=== PATIENT | male | born 1960 | race Caucasian/White ===

== ENCOUNTER 2016-09-28 13:02 | Emergency (ER) | payer SELFPAY ==
--- NOTE | 2016-09-28 15:24 | ER Document Report ---
ED Medical Screen (RME) - General Mode of Arrival: Ambulatory Information source: Patient TRAVEL OUTSIDE OF THE [place] IN LAST 30 DAYS: No - HPI Patient complains to provider of: Abdominal pain Onset: Other - months ago Associated Symptoms: Other - see notes above Exacerbated by: denies: Food - Related Data Smoking: Cigarettes Frequency of alcohol use: Heavy - 6-pack a day Drug Abuse: Marijuana <CARLOS BLANCO - Last Filed: 09/28/16 16:00> <DAYRON MONZON - Last Filed: 09/28/16 21:22> - General Chief Complaint: Abdominal Pain Stated Complaint: ABDOMINAL PAIN Notes: 55-year-old male presents to the ED complaining of constant burning epigastric abdominal pain that started a couple months ago. Patient is also complaining of nausea, but denies diarrhea, cough, or fever. Patient reports that the burning sensation is not exacerbated with eating. Patient does complain of a ventral hernia that has been present for "years". Patient states that the last 2 weeks his abdominal pain has been getting worse with the most severe pain in the last 4 days. Patient has used Tums, but to no relief. Patient does state that he is a 6 pack a day drinker. (CARLOS BLANCO) - Related Data Allergies/Adverse Reactions: Penicillins Allergy (Verified 09/28/16 13:30) Past Medical History - General Information source: Patient - Social History Chew tobacco use (# tins/day): No Frequency of alcohol use: Heavy Drug Abuse: Marijuana Family history: Reviewed & Not Pertinent - Past Medical History Cardiac Medical History: Reports: Hx Hypertension - no medications Renal/ Medical History: Denies: Hx Peritoneal Dialysis Past Surgical History: Denies: Hx Pacemaker - Immunizations Hx Diphtheria, Pertussis, Tetanus Vaccination: No <CARLOS BLANCO - Last Filed: 09/28/16 16:00> Review of Systems - Review of Systems Constitutional: No symptoms reported. denies: Fever EENT: No symptoms reported Cardiovascular: No symptoms reported Respiratory: No symptoms reported. denies: Cough Gastrointestinal: See HPI, Abdominal pain, Nausea. denies: Diarrhea Genitourinary: No symptoms reported Male Genitourinary: No symptoms reported Musculoskeletal: No symptoms reported Skin: No symptoms reported Hematologic/Lymphatic: No symptoms reported Neurological/Psychological: No symptoms reported <CARLOS BLANCO - Last Filed: 09/28/16 16:00> Physical Exam - General General appearance: Alert In distress: None - Respiratory Respiratory status: No respiratory distress Breath sounds: Other - Diminished breath sounds to the right lower lobe. - Cardiovascular Rhythm: Regular Heart sounds: Normal auscultation Murmur: No Friction rub: No Gallop: None auscultated - Abdominal Inspection: Other - Partially reducible ventral hernia just below the xiphoid process which is minimally tender to palpate. Because the patient was sitting upright it is unsure if the hernia will be reducible.. No: Normal <CARLOS BLANCO - Last Filed: 09/28/16 16:00> Course - Laboratory Result Diagrams: 09/28/16 15:48 09/28/16 15:48 <CARLOS BLANCO - Last Filed: 09/28/16 16:00> - Laboratory Result Diagrams: 09/28/16 15:48 09/28/16 15:48 <DAYRON MONZON - Last Filed: 09/28/16 21:22> - Vital Signs Vital signs: Temp Pulse Resp BP Pulse Ox 98.3 F 60 18 134/73 H 98 09/28/16 19:21 09/28/16 19:21 09/28/16 19:21 09/28/16 19:21 09/28/16 19:21 - Laboratory Laboratory results interpreted by me: 09/28/16 09/28/16 09/28/16 15:48 15:48 18:00 WBC 11.3 H RBC 3.94 L Hgb 13.3 L MCV 101 H MCH 33.8 H BUN 35 H Creatinine 1.45 H Est GFR (Non-Af Amer) 51 L Lactic Acid 0.6 L Doctor's Discharge <CARLOS BLANCO - Last Filed: 09/28/16 16:00> <DAYRON MONZON - Last Filed: 09/28/16 21:22> - Discharge Clinical Impression: Epigastric hernia, Kidney lesion, [place], right Condition: Good Disposition: HOME, SELF-CARE Additional Instructions: Come back immediately with any increased pain, fevers, vomiting, expansion of the hernia, or any other acute problems. Please make sure that she follow-up with a general surgeon as we have discussed. Please make sure that you follow- up with your primary care physician regarding the kidney lesion that we saw on CT scan as we have discussed. He can take Prilosec [id number] daily as we have discussed Prescriptions: Hydrocodone/Acetaminophen [[place] 5-325 Tablet] 1 each PO Q6 PRN #12 tablet PRN Reason: For Pain Referrals: ALEISHA GUERIN MD [ACTIVE STAFF] - Follow up as needed Scribe Documentation - Scribe Written by Scribe:: Dennis Lakhani, 09/28/2016 1613 acting as scribe for :: Maddie <CARLOS BLANCO - Last Filed: 09/28/16 16:00>
[2016-09-28 16:13] LABS: ABSOLUTE EOSINOPHILS # (AUTO) 0.2 10^3/uL (0.0-0.6); ABSOLUTE LYMPHOCYTES (AUTO) 2.2 10^3/uL (0.5-4.7); ABSOLUTE MONOCYTES (AUTO) 0.9 10^3/uL (0.1-1.4); ABSOLUTE NEUT (AUTO) 8.1 10^3/uL (1.7-8.2); BASOPHILS % (AUTO) 0.3 % (0-2); EOSINOPHILS % (AUTO) 1.4 % (0-6); HEMATOCRIT 39.9 % (37.9-51.0); HEMOGLOBIN 13.3 g/dL (13.5-17.0); LYMPHOCYTES % (AUTO) 19.3 % (13-45); MEAN CORPUSCULAR HEMOGLOBIN 33.8 pg (27.0-33.4); MEAN CORPUSCULAR HGB CONC 33.4 g/dL (32.0-36.0); MEAN CORPUSCULAR VOLUME 101 fl (80-97); MONOCYTES % (AUTO) 7.7 % (3-13); RED BLOOD COUNT 3.94 10^6/uL (4.35-5.55); RED CELL DISTRIBUTION WIDTH 13.1 % (11.5-14.0); SEGMENTED NEUTROPHILS % (AUTO) 71.3 % (42-78); WHITE BLOOD COUNT 11.3 10^3/uL (4.0-10.5)
[2016-09-28] MEDS ORDERED: MORPHINE SULFATE 10 MG/ML INJ IV ONE (16:13)
[2016-09-28 16:20] LABS: ALANINE AMINOTRANSFERASE 48 U/L (21-72); ALBUMIN 4.6 g/dL (3.5-5.0); ALKALINE PHOSPHATASE 71 U/L (38-126); ANION GAP 12 (5-19); ASPARTATE AMINO TRANSFERASE 29 U/L (17-59); BILIRUBIN,DIRECT 0.3 mg/dL (0.0-0.4); BILIRUBIN,TOTAL 0.8 mg/dL (0.2-1.3); BLOOD UREA NITROGEN 35 mg/dL (7-20); CARBON DIOXIDE 25 mmol/L (22-30); CHLORIDE 104 mmol/L (98-107); CREATININE RESULT 1.45 mg/dL (0.52-1.25); GLUCOSE 93 mg/dL (75-110); LIPASE 208.3 U/L (23-300); POTASSIUM 4.8 mmol/L (3.6-5.0); SODIUM 140.7 mmol/L (137-145); TOTAL PROTEIN 8.1 g/dL (6.3-8.2)
[2016-09-28] MEDS ORDERED: NORMAL SALINE 1000 ML 1,000 ML IV ONE (16:51)
--- NOTE | 2016-09-28 16:55 | ER Document Report ---
ED GI/ - General Chief Complaint: Abdominal Pain Stated Complaint: ABDOMINAL PAIN Time Seen by Provider: 09/28/16 15:24 Mode of Arrival: Ambulatory Information source: Patient Notes: 55-year-old male who presents today with some progressive intermittent epigastric abdominal pain for 2 months. He denies any radiation. He states worse with movement. He states nausea without vomiting, fevers, chest pain, shortness of breath. Patient states he has had a "bulge" in his upper abdomen for around 2 years that has progressively increased in size. TRAVEL OUTSIDE OF THE [place] IN LAST 30 DAYS: No - HPI Patient complains to provider of: Abdominal pain Onset: Other - See above Timing/Duration: Gradual Quality of pain: Achy Severity at maximum: Moderate Severity in ED: Mild, Moderate Pain Level: 1 Location: Epigastric Sexual history: Inactive Associated symptoms: Other - See above Exacerbated by: Other - See above Relieved by: Denies Similar symptoms previously: No Recently seen / treated by doctor: No - Related Data Allergies/Adverse Reactions: Penicillins Allergy (Verified 09/28/16 13:30) Past Medical History - General Information source: Patient - Social History Smoking Status: Current Every Day Smoker Cigarette use (# per day): No Chew tobacco use (# tins/day): No Smoking Education Provided: No Frequency of alcohol use: Heavy Drug Abuse: Marijuana Family History: Reviewed & Not Pertinent Patient has suicidal ideation: No Patient has homicidal ideation: No - Past Medical History Cardiac Medical History: Reports: Hx Hypertension - no medications Renal/ Medical History: Denies: Hx Peritoneal Dialysis Past Surgical History: Denies: Hx Pacemaker - Immunizations Hx Diphtheria, Pertussis, Tetanus Vaccination: No Review of Systems - Review of Systems Constitutional: denies: Fever Cardiovascular: denies: Chest pain, Palpitations, Dizziness, Lightheaded Respiratory: denies: Cough, Short of breath Gastrointestinal: denies: Vomiting Genitourinary: denies: Dysuria Musculoskeletal: denies: Leg swelling Skin: Other - no hives. denies: Rash Neurological/Psychological: Other - no slurred speech -: Yes All other systems reviewed and negative Physical Exam - Vital signs Vitals: Temp Pulse Resp BP Pulse Ox 98.3 F 78 16 108/64 98 09/28/16 13:33 09/28/16 13:33 09/28/16 13:33 09/28/16 13:33 09/28/16 13:33 Notes: Reviewed vital signs and nursing note as charted by RN. CONSTITUTIONAL: Alert and oriented and responds appropriately to questions. Well -appearing; well-nourished HEAD: Normocephalic; atraumatic EYES: Sclerae non-icteric CARD: Regular rate and rhythm; no murmurs, no clicks, no rubs, no gallops; symmetric distal pulses RESP: Normal chest excursion without splinting or tachypnea; breath sounds clear and equal bilaterally ABD/GI: Normal bowel sounds; patient has a palpable mass to the mid epigastric region. No erythema or induration present. Mildly tender to palpation. BACK: The back appears normal and is non-tender to palpation, there is no CVA tenderness EXT: Normal ROM in all joints; non-tender to palpation; no cyanosis, no effusions, no edema SKIN: Normal color for age and race; warm; dry; good turgor; capillary refill < 2 seconds; no acute lesions noted NEURO: Moves all extremities equally; Motor and sensory function intact PSYCH: The patient's mood and manner are appropriate. Grooming and personal hygiene are appropriate. Course - Re-evaluation Re-evalutation: Given the above history and physical examination, basic labs, lipid panel, lipase, and a CT scan of the abdomen and pelvis has been ordered. 09/28/16 16:[address] scan is pending. 09/28/16 18:[address] scan as recorded. Normal lactic acid. EKG shows a heart rate of 66, normal sinus rhythm, normal axis, no obvious ST elevation or depression. I discussed the CT findings with the patient and the family. He understands he needs to follow-up about the kidney lesion that is present. No gallbladder pathology present. Labs as recorded. Given the patient's epigastric hernia that contains only fat, I have asked the general surgeon to come down and at least quickly assessed the patient. He is in agreement. He states he will be down momentarily. 09/28/16 19:05 The surgeon has come down and evaluated the patient. He does not believe that the patient requires admission at this time. He states that they will fit the patient into the clinic tomorrow. Patient is in agreement with this plan. Patient will be discharged home with strict return precautions and follow-up tomorrow morning. - Vital Signs Vital signs: Temp Pulse Resp BP Pulse Ox 98.3 F 78 16 108/64 98 09/28/16 13:33 09/28/16 13:33 09/28/16 13:33 09/28/16 13:33 09/28/16 13:33 - Laboratory Result Diagrams: 09/28/16 15:48 09/28/16 15:48 Laboratory results interpreted by me: 09/28/16 09/28/16 09/28/16 15:48 15:48 18:00 WBC 11.3 H RBC 3.94 L Hgb 13.3 L MCV 101 H MCH 33.8 H BUN 35 H Creatinine 1.45 H Est GFR (Non-Af Amer) 51 L Lactic Acid 0.6 L Discharge - Discharge Clinical Impression: Epigastric hernia, Kidney lesion, [place], right Condition: Good Disposition: HOME, SELF-CARE Additional Instructions: Come back immediately with any increased pain, fevers, vomiting, expansion of the hernia, or any other acute problems. Please make sure that she follow-up with a general surgeon as we have discussed. Please make sure that you follow- up with your primary care physician regarding the kidney lesion that we saw on CT scan as we have discussed. He can take Prilosec [id number] daily as we have discussed Prescriptions: Hydrocodone/Acetaminophen [[place] 5-325 Tablet] 1 each PO Q6 PRN #12 tablet PRN Reason: For Pain Referrals: ALEISHA GUERIN MD [ACTIVE STAFF] - Follow up as needed
--- NOTE | 2016-09-28 17:41 | RADIOLOGY REPORT (SQ) ---
EXAM DESCRIPTION: CT ABD/PELVIS WITH IV ONLY COMPLETED DATE/TIME: 09/28/2016 5:23 pm REASON FOR STUDY: 47, abdominal pain and epigastric palpable mass COMPARISON: None. TECHNIQUE: CT scan of the abdomen and pelvis performed using helical scanning technique with dynamic intravenous contrast injection. No oral contrast. Images reviewed with lung, soft tissue, and bone windows. Reconstructed coronal and sagittal MPR images reviewed. Delayed images for evaluation of the urinary system also acquired. All images stored on PACS. All CT scanners at this facility use dose modulation, iterative reconstruction, and/or weight based d osing when appropriate to reduce radiation dose to as low as reasonably achievable (ALARA). [facility]: Dose Right [facility]: CareDose [facility]: Dose Right [facility]: Teradose 4D [facility]: Friend.ly CONTRAST TYPE AND DOSE: contrast/concentration: Isovue 370.00 mg/ml; Total Contrast Delivered: 89.0 ml; Total Saline Delivered: 70.0 ml RENAL FUNCTION: Creatinine 1.45 RADIATION DOSE: Up-to-date CT equipment and radiation dose reduction techniques were employed. CTDIv ol: 9.9 - 13.5 mGy. DLP: 1162 mGy-cm.. LIMITATIONS: None. FINDINGS: LOWER CHEST: No significant findings. No nodules or infiltrates. LIVER: Normal size. No masses or dilated ducts. SPLEEN: Normal size. No focal lesions. PANCREAS: No masses. No significant calcifications. No adjacent inflammation or peripancreatic fluid collections. Pancreatic duct not dilated. GALLBLADDER: No identified stones by CT criteria. No inflammatory changes to suggest cholecystitis. ADRENAL GLANDS: No significant masses or asymmetry. RIGHT KIDNEY AND URETER: 3.7 heterogeneous solid mass in the mid right kidney. No significant calci fications. No hydronephrosis or hydroureter. LEFT KIDNEY AND URETER: No solid masses. No significant calcifications. No hydronephrosis or hydr oureter. AORTA AND VESSELS: No aneurysm. No dissection. Renal arteries, SMA, celiac without stenosis. RETROPERITONEUM: No retroperitoneal adenopathy, hemorrhage or masses. BOWEL AND PERITONEAL CAVITY: No masses or inflammatory changes. No free fluid or peritoneal masses. APPENDIX: Normal. PELVIS: No mass or free fluid. Normal bladder. ABDOMINAL WALL: In the epigastrium there is a factual defect with a ventral hernia containing fat. M easures 5.5 cm. BONES: No significant or acute findings. OTHER: No other significant finding. IMPRESSION: Solid mass in the right kidney highly suspicious for renal cell carcinoma. No evidence for metastatic lesions. Epigastric Ventral hernia containing herniated fat TECHNICAL DOCUMENTATION: JOB ID: [id number] Quality ID # [id number]: Final reports with documentation of one or more dose reduction techniques (e.g., Au tomated exposure control, adjustment of the mA and/or kV according to patient size, use of iterative reconstruction technique) 2010 [employer]- All Rights Reserved
[2016-09-28] MEDS ORDERED: LIDOCAINE 2% VISCOUS SOLN 20 ML UDCUP PO ONE (18:52)
[2016-09-28] MEDS ORDERED: METOCLOPRAMIDE HCL ORAL SOLN 10 MG/10 ML UDCUP PO ONE (18:52)
[2016-09-28] MEDS ORDERED: MAG HYDROX/AL HYDROX/SIMETH SUSP 30 ML UDCUP PO ONE (18:52)
[2016-09-28 19:24] VITALS: BP 134/73
--- NOTE | 2016-09-28 20:28 | CONSULTATION REPORT E ---
Consultation Report NAME: GALLITO CARMEN : 1960 AGE: 55Y DATE: 09/28/2016 TO: CHERY ALLAN M.D. FROM: MARTA LEVINE M.D. Requesting Physician REASON FOR CONSULTATION: Patient with pains along the epigastric hernia site. HISTORY OF PRESENT ILLNESS: This is a 55-year-old male who has been known to have epigastric hernia for the past few years. Today while at work he complained of severe pains and came home after 2 hours and then went to the emergency room. A CAT scan of the abdomen was done which showed incarcerated supraumbilical hernia with fatty tissue as contents. No bowel was noted. The patient also with no history of nausea or vomiting. An incidental finding of renal mass was noted. SOCIAL HISTORY: The patient smokes about 1-1/2 packs a day and drinks socially, denies alcohol use. PAST MEDICAL HISTORY: History of hypertension. ALLERGIES: None known. REVIEW OF SYSTEMS: GI: As in HPI. The rest of the systems are normal. PHYSICAL EXAMINATION: GENERAL APPEARANCE: A well-developed, well-nourished 55-year-old male, alert and oriented, complaining of pains in the epigastric area. HEENT: Neck is supple, no thyromegaly. RESPIRATORY: Lungs are clear. HEART: Regular sinus rhythm. ABDOMEN: Soft with a prominent soft mass at the epigastric area that is nonreducible that is just slightly tender. No evidence of inflammation around the skin. IMPRESSION/PLAN: Since the patient does not have any evidence of bowel that is obstructed, the hernia can be repaired on an elective basis. Advised the patient to go to the Surgical Clinic tomorrow. But more important is to have the renal mass evaluated. DICTATING PHYSICIAN: CHERY ALLAN M.D. [id number] PHY#: [id number] 2011 ID: [id number] JOB#: [id number] ACCT: [id number] cc:CHERY ALLAN M.D. >
--- NOTE | 2016-09-29 09:16 | EKG REPORT ---
SEVERITY:- NORMAL ECG - SINUS RHYTHM : Confirmed by: Paddy Hayes 29-Sep-2016 09:16:29
== END 2016-09-28 19:30 | disposition home or self-care (01) ==
LOC: ER 13:02
DX: K43.9 Ventral hernia without obstruction or gangrene (principal); N28.9 Disorder of kidney and ureter, unspecified; R10.9 Unspecified abdominal pain; R10.13 Epigastric pain; R11.0 Nausea; R50.9 Fever, unspecified; R07.9 Chest pain, unspecified; R06.02 Shortness of breath; F17.200 Nicotine dependence, unspecified, uncomplicated
CPT/HCPCS: 93005; 99285; 96374; 36415; 83605; 83690; 85025; 80053; 84484; 74177; 93010; J2270

== ENCOUNTER 2016-11-03 07:10 | Day surgery (SDC) | payer OTHER ==
[2016-11-03] MEDS ORDERED: ONDANSETRON HCL INJ/PF 4 MG/2 ML SDV ONE (07:21)
[2016-11-03] MEDS ORDERED: GLYCOPYRROLATE INJ 0.4 MG/2 ML VIAL ONE (07:22)
[2016-11-03] MEDS ORDERED: NALOXONE HCL INJ/PF 0.4 MG/1 ML SDV ONE (07:22)
[2016-11-03] MEDS ORDERED: GLUCAGON,HUMAN RECOMB 1 MG INJ ONE (07:23)
[2016-11-03] MEDS ORDERED: EPINEPHRINE INJ 1 MG/10 ML DISP.SYRIN ONE (07:23)
[2016-11-03] MEDS ORDERED: FLUMAZENIL INJ 0.5 MG/5 ML VIAL IV ONE (07:23)
[2016-11-03] MEDS: MIDAZOLAM 2 MG/2 ML INJ ONE ×3 (07:36→07:45)
[2016-11-03] MEDS: FENTANYL CITRATE INJ/PF 100 MCG/2 ML AMPUL ONE ×2 (07:38→07:49)
--- NOTE | 2016-11-03 08:23 | Operative Report ---
Operative Report DATE OF SURGERY: 11/03/16 PREOPERATIVE DIAGNOSIS: Screening for colon cancer. Right renal mass POSTOPERATIVE DIAGNOSIS: Same with pedunculated polyp left colon OPERATION: Total colonoscopy to cecum. Left colon polypectomy SURGEON: ALEISHA GUERIN ANESTHESIA: Moderate Sedation TISSUE REMOVED OR ALTERED: 1 polyp COMPLICATIONS: None ESTIMATED BLOOD LOSS: Scant INTRAOPERATIVE FINDINGS: See below PROCEDURE: Obtaining informed consent the patient was taken from the preoperative holding area to the main endoscopy suite where monitoring devices were attached to the patient. Plan and surgical timeout were conducted The patient was placed in the left lateral decubitus position with knees to chest. A perianal examination was performed. There was no visible or palpable anorectal pathology. Sphincter tone was felt to be normal. The flexible adult colonoscope was advanced through the anal rectal canal, all the way to the cecum. Utilization of the cecum was achieved and the ileocecal valve, the appendiceal orifice and transillumination of the anterior abdominal wall. This was an excellent study on the well-prepped bowel. The colonoscope was withdrawn slowly and methodically checked and the mucosa carefully. There was no evidence of tumor, stricture, bleeding. In the descending colon approximately 70 cm from the anal verge was a 1.5 cm variegated, pedunculated polyp on a very thin stalk. It was removed using the hot snare device, with successful retrieval of the specimen. Cautery site was in excellent condition. There was no evidence of diverticuloses. The scope was slowly withdrawn through the anal rectal canal. Complete visualization of the rectum was achieved with photodocumentation. The scope was withdrawn to the patient's anus. The patient tolerated the procedure well and was taken to the recovery area in stable condition. Per surveillance guidelines, patient will be an appropriate candidate for follow -up colonoscopy in 3 years or less if symptoms develop
--- NOTE | 2016-11-03 08:24 | PDOC DISCHARGE SUMMARY ---
Discharge Summary (SDC) - Discharge Final Diagnosis: Colonic polyp Right renal mass Date of Surgery: 11/03/16 Discharge Date: 11/03/16 Condition: Good Treatment or Instructions: [facility] [place] [id number] POST ENDOSCOPY DISCHARGE INSTRUCTIONS 1. Diet: Start clear liquids that a regular diet as tolerated. 2. Resume all preoperative medications. All oral anticoagulants and aspirins can be resumed 24 hours after procedure. 3. If a polypectomy was performed some bleeding per rectum may occur. This should stop within 3 days. If not, please contact the office. 4. If you had a colonoscopy you may experience some bloating and delayed return of normal bowel function for several days, your regular bowel movement pattern should resume within a week. 5. Please contact [facility] at to make an appointment with Dr. Sargent for 1 to 3 weeks following procedure. 6. If you have any questions or concerns regarding your care,treatment plan or follow up, please contact our office. 7. Per clinical guidelines we recommend you undergo a repeat colonoscopy in 3 _ years. Discharge Diet: As Tolerated Discharge Activity: Activity As Tolerated Home Care Assistance: None Needed Report the Following to Your Physician Immediately: Shortness of Breath, Increase in Pain, Fever over 101 Degrees
[2016-11-03 09:12] VITALS: BP 98/64
== END 2016-11-03 09:11 | disposition home or self-care (01) ==
LOC: END 07:10
PROVIDERS: ATTEND Surgery
PROC: 0DBG8ZX Excision of Left Large Intestine, Via Natural or Artificial Opening Endoscopic, Diagnostic (ICD-10-PCS; principal; 2016-11-03 07:30)
DX: D12.4 Benign neoplasm of descending colon (principal); K62.5 Hemorrhage of anus and rectum; I10 Essential (primary) hypertension; N28.89 Other specified disorders of kidney and ureter; F17.210 Nicotine dependence, cigarettes, uncomplicated; Z88.0 Allergy status to penicillin; Z79.899 Other long term (current) drug therapy; Z79.82 Long term (current) use of aspirin
CPT/HCPCS: 45385; 88305 ×2; J2250; J3010; J0171; J1610; J2310; J2405; J3490

== ENCOUNTER 2016-12-21 23:53 | Emergency (ER) | payer SELFPAY ==
[2016-12-22] MEDS ORDERED: MORPHINE SULFATE 10 MG/ML INJ IV ONE (01:25)
[2016-12-22] MEDS ORDERED: ONDANSETRON HCL INJ/PF 4 MG/2 ML SDV IV ONE (01:25)
--- NOTE | 2016-12-22 01:26 | ER Document Report ---
ED ENT - General Chief Complaint: Sore Throat Stated Complaint: SORE THROAT Time Seen by Provider: 12/22/16 01:01 Notes: Patient is a 55-year-old male who comes emergency department for chief complaint of sore throat and pain in the front of his neck. Symptoms started tonight. He states he feels tired and under the weather. He denies chest pain , shortness of breath, he states it is painful swallow but he denies difficulty swallowing. He denies any sick contacts. Past medical history of hypertension and hyperlipidemia. He denies history of diabetes or cardiovascular disease. His is with him at bedside. TRAVEL OUTSIDE OF THE [place] IN LAST 30 DAYS: No - Related Data Allergies/Adverse Reactions: Penicillins Allergy (Verified 12/21/16 23:58) Home Medications: Current Home Medications Aspirin [Aspirin EC] 81 mg PO DAILY 12/22/16 [History] Cyanocobalamin (Vitamin B-12) [Vitamin B-12] 1,000 mcg SL DAILY 12/22/16 [ History] Docusate Sodium [Dok] 1 tab PO BID 12/22/16 [History] Krill/Om-3/Dha/Epa/Phospho/Ast [Megared Rochelle-3 Krill Oil Sfgl] 1 each PO DAILY 12/22/16 [History] Simvastatin [Zocor 40 mg Tablet] 40 mg PO QHS 12/22/16 [History] Past Medical History - General Information source: Patient - Social History Smoking Status: Never Smoker Frequency of alcohol use: None Drug Abuse: None Lives with: Family Family History: Reviewed & Not Pertinent - Past Medical History Cardiac Medical History: Reports: Hx Coronary Artery Disease, Hx Hypertension Denies: Hx Heart Attack Pulmonary Medical History: Denies: Hx Asthma, Hx Bronchitis, Hx COPD, Hx Pneumonia Neurological Medical History: Denies: Hx Cerebrovascular Accident, Hx Seizures Renal/ Medical History: Denies: Hx Peritoneal Dialysis Musculoskeltal Medical History: Reports Hx Arthritis Past Surgical History: Reports: Hx Kidney (Renal Surgery) - Rt kidney removed. Denies: Hx Pacemaker - Immunizations Hx Diphtheria, Pertussis, Tetanus Vaccination: No Review of Systems - Review of Systems Constitutional: No symptoms reported EENT: See HPI Cardiovascular: No symptoms reported Respiratory: No symptoms reported Gastrointestinal: No symptoms reported Genitourinary: No symptoms reported Male Genitourinary: No symptoms reported Musculoskeletal: No symptoms reported Skin: No symptoms reported Hematologic/Lymphatic: No symptoms reported Neurological/Psychological: No symptoms reported Physical Exam - Vital signs Vitals: Temp Pulse Resp BP Pulse Ox 97.6 F 108 H 24 H 112/57 L 94 12/21/16 23:58 12/21/16 23:58 12/21/16 23:58 12/21/16 23:58 12/21/16 23:58 Interpretation: Normal - General General appearance: Appears well, Alert In distress: None - HEENT Head: Normocephalic, Atraumatic Eyes: Normal Conjunctiva: Normal Extraocular movements intact: Yes Eyelashes: Normal Pupils: PERRL Ears: Normal Nasal: Normal Mouth/Lips: Normal Mucous membranes: Normal Pharynx: Erythema. No: Exudate, Peritonsillar abscess, Uvular edema, Potential airway comprom. Neck: Anterior cervical chain. No: Posterior cervical chain, Brudzinski, Meningismus - Respiratory Respiratory status: No respiratory distress Chest status: Nontender Breath sounds: Normal. No: Decreased air movement, Wheezing Chest palpation: Normal - Cardiovascular Rhythm: Regular. No: Tachycardia - Patient is not tachycardic on my exam Heart sounds: Normal auscultation, S1 appreciated, S2 appreciated Murmur: No - Abdominal Inspection: Normal Distension: No distension Bowel sounds: Normal Tenderness: Nontender Organomegaly: No organomegaly - Back Back: Normal, Nontender - Extremities General upper extremity: Normal inspection, Nontender, Normal color, Normal ROM , Normal temperature General lower extremity: Normal inspection, Nontender, Normal color, Normal ROM , Normal temperature, Normal weight bearing. No: Mechelle's sign - Neurological Neuro grossly intact: Yes Cognition: Normal Orientation: AAOx4 [place] Coma Scale Eye Opening: Spontaneous [place] Coma Scale Verbal: Oriented [place] Coma Scale Motor: Obeys Commands Lexi Coma Scale Total: 15 Speech: Normal Motor strength normal: LUE, RUE, LLE, RLE Sensory: Normal - Psychological Associated symptoms: Normal affect, Normal mood - Skin Skin Temperature: Warm Skin Moisture: Dry Skin Color: Normal Course - Re-evaluation Re-evalutation: There is some mild leukocytosis with no bandemia. No fever, tachycardia, or hypotension. Patient is actually very well-appearing on examination. His only concern is his sore throat and his swollen lymph nodes in his neck. No concerning swelling suggesting abscess, Shade's angina, or mass. There is some erythema of the throat but no evidence of peritonsillar abscess, uvular edema, or airway compromise. Chemistry shows mildly low bicarb, shows elevated creatinine slightly above patient's usual. I did discuss this with patient and . Cannot perform contrasted CAT scan of the neck, however at the same time I do not see an indication for this. No evidence of epiglottitis or other emergent abnormality. After dexamethasone patient's symptoms almost completely gone, he is asking to leave. Will treat for pharyngitis, tonsillitis, and lymphadenopathy. Discussed with patient that this could be viral. Recommended to patient that he follow-up with his primary within the next 1-2 days, discussed return precautions in detail. Patient states satisfaction and agreement. - Vital Signs Vital signs: Temp Pulse Resp BP Pulse Ox 98.2 F 76 17 113/68 93 12/22/16 02:41 12/22/16 02:41 12/22/16 02:41 12/22/16 02:41 12/22/16 02:41 - Laboratory Result Diagrams: 12/22/16 01:35 12/22/16 01:35 Laboratory results interpreted by me: 12/22/16 12/22/16 01:35 01:35 WBC 13.8 H RBC 3.68 L Hgb 12.6 L Hct 37.3 L MCV 101 H MCH 34.2 H Absolute Neutrophils 9.7 H Sodium 135.0 L Carbon Dioxide 20 L BUN 45 H Creatinine 1.94 H Est GFR ( Amer) 44 L Est GFR (Non-Af Amer) 36 L Discharge - Discharge Clinical Impression: Anterior cervical adenopathy Pharyngitis Qualifiers: Pharyngitis/tonsillitis etiology: unspecified etiology Qualified Code(s): J02.9 - Acute pharyngitis, unspecified Condition: Stable Disposition: HOME, SELF-CARE Additional Instructions: Your examination is consistent with a throat infection and swollen lymph nodes. I recommend taking the clindamycin as prescribed. He has been given dexamethasone here tonight for your symptoms. Take Tylenol or similar medication for your symptoms in addition. Follow-up with primary care. Return to the emergency department for any concerning or worsening symptoms including swelling, difficulty swallowing, difficulty breathing, spiking fever, or any other concerning symptoms. Prescriptions: Clindamycin HCl 300 mg PO TID #30 capsule
[2016-12-22 01:44] LABS: ABSOLUTE BASOPHILS # (AUTO) 0.1 10^3/uL (0.0-0.2); ABSOLUTE EOSINOPHILS # (AUTO) 0.6 10^3/uL (0.0-0.6); ABSOLUTE LYMPHOCYTES (AUTO) 2.5 10^3/uL (0.5-4.7); ABSOLUTE MONOCYTES (AUTO) 0.9 10^3/uL (0.1-1.4); ABSOLUTE NEUT (AUTO) 9.7 10^3/uL (1.7-8.2); BASOPHILS % (AUTO) 0.7 % (0-2); EOSINOPHILS % (AUTO) 4.1 % (0-6); HEMATOCRIT 37.3 % (37.9-51.0); HEMOGLOBIN 12.6 g/dL (13.5-17.0); HGB HCT DIFFERENCE 0.5; MEAN CORPUSCULAR HEMOGLOBIN 34.2 pg (27.0-33.4); MEAN CORPUSCULAR HGB CONC 33.7 g/dL (32.0-36.0); MEAN CORPUSCULAR VOLUME 101 fl (80-97); MONOCYTES % (AUTO) 6.7 % (3-13); RED BLOOD COUNT 3.68 10^6/uL (4.35-5.55); SEGMENTED NEUTROPHILS % (AUTO) 70.5 % (42-78); WHITE BLOOD COUNT 13.8 10^3/uL (4.0-10.5)
[2016-12-22 01:56] LABS: ALANINE AMINOTRANSFERASE 45 U/L (21-72); ALBUMIN 4.2 g/dL (3.5-5.0); ALKALINE PHOSPHATASE 83 U/L (38-126); ANION GAP 14 (5-19); ASPARTATE AMINO TRANSFERASE 21 U/L (17-59); BILIRUBIN,DIRECT 0.3 mg/dL (0.0-0.4); BILIRUBIN,TOTAL 0.3 mg/dL (0.2-1.3); BLOOD UREA NITROGEN 45 mg/dL (7-20); CARBON DIOXIDE 20 mmol/L (22-30); CHLORIDE 101 mmol/L (98-107); CREATININE RESULT 1.94 mg/dL (0.52-1.25); GLUCOSE 105 mg/dL (75-110); POTASSIUM 4.4 mmol/L (3.6-5.0); TOTAL PROTEIN 7.3 g/dL (6.3-8.2)
[2016-12-22] MEDS ORDERED: CLINDAMYCIN HCL 150 MG CAPSULE PO ONE (02:28)
[2016-12-22] MEDS ORDERED: DEXAMETHASONE SOD PHOS INJ 10 MG/1 ML VIAL IV ONE (02:28)
[2016-12-22 02:43] VITALS: BP 113/68
[2016-12-22] MEDS ORDERED: HYDROCODONE/ACETAMINOPHEN 5-325 MG 6 TAB/DSPK PO PRN (03:40)
== END 2016-12-22 03:45 | disposition home or self-care (01) ==
LOC: ER 23:53
DX: J02.9 Acute pharyngitis, unspecified (principal); R59.0 Localized enlarged lymph nodes; Z79.899 Other long term (current) drug therapy
CPT/HCPCS: 99283; 96374; 96375; 36415; 87070; 87880; 85025; 80053; J2270; J2405; J1100

== ENCOUNTER 2017-05-19 08:00 | Emergency (ER) | payer SELFPAY ==
--- NOTE | 2017-05-19 08:30 | ER Document Report ---
ED General - General Chief Complaint: Back Pain Stated Complaint: BACK PAIN Time Seen by Provider: 05/19/17 08:17 Mode of Arrival: Ambulatory Information source: Patient Notes: 56-year-old male presents with 2 separate complaints, his first complaint is back pain of 20 year duration. Patient is a smoker he denies any history of cancer, denies IV drug use, denies any traumatic injuries, denies any cauda equina concerns. Patient notes no weakness or numbness, he says if he bends forward for long period of time will get numb in his back. Patient has not seen anyone for this back pain, rarely takes any medications for his back pain. Patient also notes that he has a cyst to his right foot that gets bigger and smaller and is intermittently painful denies any fevers TRAVEL OUTSIDE OF THE [place] IN LAST 30 DAYS: No - HPI Onset: Other - 20 yr duration Onset/Duration: Persistent Quality of pain: Achy Severity: Mild Pain Level: 1 Associated symptoms: Body/muscle aches, Other Exacerbated by: Movement Relieved by: Denies Similar symptoms previously: Yes Recently seen / treated by doctor: No - Related Data Allergies/Adverse Reactions: Penicillins Allergy (Verified 12/21/16 23:58) Past Medical History - Social History Smoking Status: Current Every Day Smoker Cigarette use (# per day): Yes Chew tobacco use (# tins/day): No Smoking Education Provided: No Family History: Reviewed & Not Pertinent - Past Medical History Cardiac Medical History: Reports: Hx Coronary Artery Disease, Hx Hypertension Denies: Hx Heart Attack Pulmonary Medical History: Denies: Hx Asthma, Hx Bronchitis, Hx COPD, Hx Pneumonia Neurological Medical History: Denies: Hx Cerebrovascular Accident, Hx Seizures Renal/ Medical History: Denies: Hx Peritoneal Dialysis Musculoskeltal Medical History: Reports Hx Arthritis Past Surgical History: Reports: Hx Kidney (Renal Surgery) - Rt kidney removed. Denies: Hx Pacemaker - Immunizations Hx Diphtheria, Pertussis, Tetanus Vaccination: No Review of Systems - Review of Systems Notes: REVIEW OF SYSTEMS: CONSTITUTIONAL : Denies fever, chills, or sweats. Denies recent illness. EENT: Denies eye, ear, throat, or mouth pain or symptoms. Denies nasal or sinus congestion or discharge. Denies throat, tongue, or mouth swelling or difficulty swallowing. CARDIOVASCULAR: Denies chest pain. Denies palpitations or racing or irregular heart beat. Denies ankle edema. RESPIRATORY: Denies cough, cold, or chest congestion. Denies shortness of breath, difficulty breathing, or wheezing. GASTROINTESTINAL: Denies abdominal pain or distention. Denies nausea, vomiting , or diarrhea. Denies blood in vomitus, stools, or per rectum. Denies black, tarry stools. Denies constipation. GENITOURINARY: Denies difficulty urinating, painful urination, burning, frequency, blood in urine, or discharge. MUSCULOSKELETAL: admits low back pain SKIN: right foot cyst HEMATOLOGIC : Denies easy bruising or bleeding. LYMPHATIC: Denies swollen, enlarged glands. NEUROLOGICAL: Denies confusion or altered mental status. Denies passing out or loss of consciousness. Denies dizziness or lightheadedness. Denies headache. Denies weakness or paralysis or loss of use of either side. Denies problems with gait or speech. Denies sensory loss, numbness, or tingling. Denies seizures. PSYCHIATRIC: Denies anxiety or stress. Denies depression, suicidal ideation, or homicidal ideation. ALL OTHER SYSTEMS REVIEWED AND NEGATIVE. Dictation was performed using [employer] voice recognition software PHYSICAL EXAMINATION: GENERAL: Well-appearing, well-nourished and in no acute distress. HEAD: Atraumatic, normocephalic. EYES: Pupils equal round and reactive to light, extraocular movements intact, sclera anicteric, conjunctiva are normal. ENT: Nares patent, oropharynx clear without exudates. Moist mucous membranes. NECK: Normal range of motion, supple without lymphadenopathy LUNGS: Breath sounds clear to auscultation bilaterally and equal. No wheezes rales or rhonchi. HEART: Regular rate and rhythm without murmurs ABDOMEN: Soft, nontender, nondistended abdomen. No guarding, no rebound. No masses appreciated. Musculoskeletal: Normal range of motion, no pitting or edema. No cyanosis. No tenderness on palpation full range of motion NEUROLOGICAL: Cranial nerves grossly intact. Normal speech, normal gait. Normal sensory, motor exams PSYCH: Normal mood, normal affect. SKIN:3x4 cm cyst on the right foot Physical Exam - Vital signs Vitals: Temp Pulse Resp BP Pulse Ox 98.4 F 83 16 128/73 H 97 05/19/17 08:04 05/19/17 08:04 05/19/17 08:04 05/19/17 08:04 05/19/17 08:04 Course - Re-evaluation Re-evalutation: 05/19/17 12:07 Patient does not meet criteria for an MRI, he is no cauda equina concerns, an outpatient order for MRI has been ordered. The cyst was incised and drained thick synovial fluid was noted as well as thick cystic material patient given wound care instructions After performing a Medical Screening Examination, I estimate there is LOW risk for EXPANDING OR RUPTURED ABDOMINAL AORTIC ANEURYSM, CAUDA EQUINA SYNDROME, EPIDURAL MASS LESION, or HERNIATED DISK CAUSING SEVERE SPINAL STENOSIS, thus I consider the discharge disposition reasonable. I have reevaluated this patient multiple times and no significant life threatening changes are noted. The patient and I have discussed the diagnosis and risks, and we agree with discharging home and close follow-up. We also discussed returning to the Emergency Department immediately if new or worsening symptoms occur with the understanding that symptoms and presentations can change. We have discussed the symptoms which are most concerning (e.g., saddle anesthesia, urinary or bowel incontinence or retention, changing or worsening pain) that necessitate immediate return. - Vital Signs Vital signs: Temp Pulse Resp BP Pulse Ox 98.6 F 78 18 124/78 98 05/19/17 10:00 05/19/17 10:00 05/19/17 10:00 05/19/17 10:00 05/19/17 10:00 Procedures - Incision and Drainage Left Foot Time completed: 10:30 Type: Simple Anesthetic type: 1% Lidocaine mL's of anesthetic: 5 I&D procedure: Sterile dressing applied Incision Method: Incision made by scalpel Amount/type of drainage: thick synovial fluid, thick cottage cheese discharge Discharge - Discharge Clinical Impression: Ganglion cyst of right foot Back pain Qualifiers: Back pain location: low back pain Chronicity: chronic Back pain laterality: bilateral Sciatica presence: without sciatica Qualified Code(s): M54.5 - Low back pain; G89.29 - Other chronic pain; G89.29 - Other chronic pain Condition: Stable Disposition: HOME, SELF-CARE Instructions: Low Back Pain ([facility]) Prescriptions: Ketorolac Tromethamine [Toradol 10 mg Tablet] 10 mg PO BID #10 tablet Prednisone [Deltasone 20 mg Tablet] 3 tab PO DAILY 5 Days tablet Forms: Follow-Up Radiology Testing Referrals: NACHO WHEELER MD [ACTIVE STAFF] - Follow up tomorrow
[2017-05-19] MEDS ORDERED: LIDOCAINE 1% INJ-PF (10 MG/ML) 30 ML SDV INJ ONE (08:59)
[2017-05-19] MEDS ORDERED: KETOROLAC TROMETHAMINE 60 MG/2 ML SDV IM ONE (09:03)
[2017-05-19] MEDS ORDERED: DEXAMETHASONE SOD PHOS INJ 10 MG/1 ML VIAL IM ONE (09:03)
[2017-05-19 10:00] VITALS: BP 124/78
== END 2017-05-19 10:00 | disposition home or self-care (01) ==
LOC: ER 08:00
PROC: 0H9MXZZ Drainage of Right Foot Skin, External Approach (ICD-10-PCS; principal; 2017-05-19)
DX: M67.471 Ganglion, right ankle and foot (principal); M54.9 Dorsalgia, unspecified; G89.29 Other chronic pain; F17.200 Nicotine dependence, unspecified, uncomplicated
CPT/HCPCS: 99283; 96372; 10060; J1885; J3490; J1100

== ENCOUNTER → 2017-06-17 | Outpatient (CLI) | payer OTHER ==
--- NOTE | 2017-06-18 17:17 | RADIOLOGY REPORT (SQ) ---
EXAM DESCRIPTION: MRI LUMBAR SPINE WITHOUT COMPLETED DATE/TIME: 06/17/2017 11:49 am REASON FOR STUDY: LUMBAR PAIN M54.5 LOW BACK PAIN COMPARISON: None. TECHNIQUE: Sagittal and Axial imaging includes T1, T2, STIR and gradient echo sequences. Coronal T2/ HASTE imaging. LIMITATIONS: None. FINDINGS: VISUALIZED UPPER ABDOMEN: Absent right kidney. SEGMENTATION: No transitional anatomy. The lowest well-developed disc space is labeled L5-S1. ALIGNMENT: Grade 1 spondylolisthesis L4-5. VERTEBRAE: Intact. BONE MARROW: Normal. No marrow replacement or reactive changes. DISC SIGNAL: Desiccation L5-S1. POSTERIOR ELEMENTS: Intact. HARDWARE: None in the spine. CORD AND CONUS: Normal in size and signal intensity. Conus at the appropriate level. SOFT TISSUES: No aortic aneurysm seen. No bulky retroperitoneal adenopathy or mass. No paraspinal mas s or fluid. L1-L2: No significant spinal stenosis or exit foraminal stenosis. L2-L3: No significant spinal stenosis or exit foraminal stenosis. L3-L4: No significant spinal stenosis or exit foraminal stenosis. L4-L5: Disc bulge and facet arthropathy. No significant stenosis. L5-S1: Collapse of the disc space. Disc bulge. No significant spinal stenosis. Mild neural foramin al narrowing bilaterally. LOWER THORACIC: Incompletely imaged. No stenosis seen. SACRUM: Visualized upper sacrum intact. OTHER: No other significant findings. IMPRESSION: Facet arthropathy. Mild malalignment L4-5. TECHNICAL DOCUMENTATION: JOB ID: [id number] [employer]- All Rights Reserved Reading location - IP/workstation name: [email or web address]
== END ==
LOC: RAD 10:50
PROVIDERS: ATTEND Emergency Medicine
DX: M54.5 Low back pain (principal)
CPT/HCPCS: 72148

== ENCOUNTER 2017-11-15 09:48 | Emergency (ER) | payer OTHER ==
[2017-11-15 09:54] VITALS: BP 130/72
--- NOTE | 2017-11-15 11:10 | ER Document Report ---
ED Medical Screen (RME) - General Chief Complaint: Abscess Stated Complaint: ABSCESS Time Seen by Provider: 11/15/17 11:09 TRAVEL OUTSIDE OF THE [place] IN LAST 30 DAYS: No - HPI Patient complains to provider of: Cysts on shoulder and foot - Related Data Allergies/Adverse Reactions: Penicillins Allergy (Verified 11/15/17 09:51) Past Medical History - Social History Family history: Reviewed & Not Pertinent - Past Medical History Cardiac Medical History: Reports: Hx Coronary Artery Disease, Hx Hypertension Denies: Hx Heart Attack Pulmonary Medical History: Denies: Hx Asthma, Hx Bronchitis, Hx COPD, Hx Pneumonia Neurological Medical History: Denies: Hx Cerebrovascular Accident, Hx Seizures Renal/ Medical History: Denies: Hx Peritoneal Dialysis Musculoskeltal Medical History: Reports Hx Arthritis Past Surgical History: Reports: Hx Kidney (Renal Surgery) - Rt kidney removed. Denies: Hx Pacemaker - Immunizations Hx Diphtheria, Pertussis, Tetanus Vaccination: No Physical Exam - Vital signs Vitals: Temp Pulse Resp BP Pulse Ox 98.9 F 80 16 130/72 H 97 11/15/17 09:53 11/15/17 09:53 11/15/17 09:53 11/15/17 09:53 11/15/17 09:53 Course - Re-evaluation Re-evalutation: 11/15/17 11:09 This 66-year-old man presented for long-standing cyst which covers body, he has had to drain in the past presents for complaint of worse on the right ankle and wanted his tailbone would like them removed. Does not have any systemic signs of infection at this time to suggest abscesses. His overall well appearing, will plan for further evaluation and more private setting as patient is unable to disrobe at this time. - Vital Signs Vital signs: Temp Pulse Resp BP Pulse Ox 98.9 F 80 16 130/72 H 97 11/15/17 09:53 11/15/17 09:53 11/15/17 09:53 11/15/17 09:53 11/15/17 09:53 Doctor's Discharge - Discharge Referrals: DAVID SHI DO [Primary Care Provider] - Follow up as needed
--- NOTE | 2017-11-15 11:48 | ER Document Report ---
ED Skin Rash/Insect Bite/Abscs - General Chief Complaint: Abscess Stated Complaint: ABSCESS Time Seen by Provider: 11/15/17 11:09 Mode of Arrival: Ambulatory Information source: Patient TRAVEL OUTSIDE OF THE [place] IN LAST 30 DAYS: No - HPI Patient complains to provider of: Skin rash/lesion, Tender/swollen area Onset: Last week Onset/Duration: Gradual Quality of pain: Pressure, Other - SORENESS Severity: Moderate Skin Character: Abscess Skin Temperature: Warm Quality of rash: Painful Identify cause: No Exacerbated by: Sitting, Movement, Walking Relieved by: Standing Similar symptoms previously: Yes Recently seen / treated by doctor: No - Related Data Allergies/Adverse Reactions: Penicillins Allergy (Verified 11/15/17 09:51) Past Medical History - General Information source: Patient - Social History Smoking Status: Current Every Day Smoker Cigarette use (# per day): Yes Chew tobacco use (# tins/day): No Smoking Education Provided: No Frequency of alcohol use: Occasional Drug Abuse: None Lives with: Family Family History: Reviewed & Not Pertinent Patient has suicidal ideation: No Patient has homicidal ideation: No - Past Medical History Cardiac Medical History: Reports: Hx Coronary Artery Disease, Hx Hypertension Denies: Hx Heart Attack Pulmonary Medical History: Denies: Hx Asthma, Hx Bronchitis, Hx COPD, Hx Pneumonia Neurological Medical History: Denies: Hx Cerebrovascular Accident, Hx Seizures Endocrine Medical History: Reports: None Renal/ Medical History: Denies: Hx Peritoneal Dialysis Malignancy Medical History: Reports None GI Medical History: Reports: None Musculoskeletal Medical History: Reports Hx Arthritis Skin Medical History: Reports Other - LIPOMAS Psychiatric Medical History: Reports: None Past Surgical History: Reports: Hx Kidney (Renal Surgery) - Rt kidney removed. Denies: Hx Pacemaker - Immunizations Hx Diphtheria, Pertussis, Tetanus Vaccination: No Review of Systems - Review of Systems Constitutional: No symptoms reported. denies: Chills, Fever EENT: No symptoms reported Cardiovascular: No symptoms reported Respiratory: No symptoms reported Gastrointestinal: No symptoms reported Musculoskeletal: No symptoms reported Skin: See HPI Neurological/Psychological: No symptoms reported Physical Exam - Vital signs Vitals: Temp Pulse Resp BP Pulse Ox 98.9 F 80 16 130/72 H 97 11/15/17 09:53 11/15/17 09:53 11/15/17 09:53 11/15/17 09:53 11/15/17 09:53 Interpretation: Normal - General General appearance: Appears well, Alert In distress: None - HEENT Head: Normocephalic Eyes: Normal Conjunctiva: Normal Ears: Normal Nasal: Normal Mouth/Lips: Normal Mucous membranes: Normal - Respiratory Respiratory status: No respiratory distress - Cardiovascular Rhythm: Regular - Abdominal Inspection: Normal Distension: No distension - Back Back: Normal, Tender - OVER LOWER SACRUM & COCCYX, Other - SMALL LIPOMA L. SCAPULAR AREA - Extremities General upper extremity: Normal inspection General lower extremity: No: Normal inspection - R. FOOT (SEEE BELOW) Foot: Tender, Other - TENDER NODULAR SUBCUTANEOUS LESION ON DORSUM L. FOOT, OVER TALUS. - Neurological Neuro grossly intact: Yes Cognition: Normal Orientation: AAOx4 - Psychological Associated symptoms: Normal affect, Normal mood - Skin Skin Temperature: Warm Skin Moisture: Dry Skin Color: Normal Skin Turgor: Elastic Course - Vital Signs Vital signs: Temp Pulse Resp BP Pulse Ox 98.9 F 80 16 130/72 H 97 11/15/17 09:53 11/15/17 09:53 11/15/17 09:53 11/15/17 09:53 11/15/17 09:53 Procedures - Incision and Drainage Right Foot Time completed: 14:40 Type: Simple Anesthetic type: 1% Lidocaine w/epi mL's of anesthetic: 1 Blade size: 11 I&D procedure: Betadine prep applied Incision Method: Incision made by scalpel Amount/type of drainage: 2cc GELATINOUS Adult Front & Back picture: 1 - GANGLION CYST, INCISED & DRAINED Buttock Time completed: 14:48 Type: Simple Anesthetic type: 1% Lidocaine w/epi mL's of anesthetic: 6 Blade size: 11 I&D procedure: Betadine prep applied Incision Method: Incision made by scalpel Amount/type of drainage: 5cc PURULENT Adult Front & Back picture: 1 - ABSCESS, I & D'ed, PACKED W/ IODOFORM GAUZE Discharge - Discharge Clinical Impression: Abscess, perianal, Ganglion cyst of foot Condition: Stable Disposition: HOME, SELF-CARE Instructions: Abscess ([facility]), Post Incision and Drainage, Trimethoprim-Sulfa ( [facility]) Additional Instructions: MEDS DIRECTED. TOMORROW EVENING, REMOVE BANDAGE FROM ABSCESS AT BASE OF SPINE, REMOVE PACKING, AND BEGIN [id number]-DAY SOAKS. CONTINUE UNTIL DRAINAGE STOPS AND SORENESS IS GONE. KEEP WOUND ON FOOT COVERED WITH STERILE BANDAGE UNTIL IT IS HEALED AND NO LONGER DRAINING. FOLLOW UP WITH WOOD GRINDER OPERATOR FOR REMOVAL OF CYST ON FOOT IF IT RE-OCCURS. FOLLOW UP WITH GENERAL SURGEON FOR REMOVAL OF LIPOMAS IF DESIRED. RETURN TO E.R. IF PROBLEMS. Prescriptions: Hydrocodone/Acetaminophen [Addison 5-325 mg Tablet] 1 tab PO Q4HP PRN #14 tablet PRN Reason: For Pain Sulfamethoxazole/Trimethoprim [Sulfamethoxazole-Tmp Ds Tablet] 2 each PO BID # 40 tablet Referrals: JORGE LUIS VELEZ MD [ACTIVE STAFF] - Follow up as needed PATRICK LORENZ DPM [ACTIVE STAFF] - Follow up as needed
[2017-11-15] MEDS ORDERED: LIDOCAINE 1%/EPINEPHRINE INJ 20 ML VIAL INJ ONE (11:56)
== END 2017-11-15 15:26 | disposition home or self-care (01) ==
LOC: ER 09:48
DX: L02.215 Cutaneous abscess of perineum (principal); M67.471 Ganglion, right ankle and foot; D17.1 Benign lipomatous neoplasm of skin and subcutaneous tissue of trunk; I25.10 Atherosclerotic heart disease of native coronary artery without angina pectoris; I10 Essential (primary) hypertension; F17.210 Nicotine dependence, cigarettes, uncomplicated; Z88.0 Allergy status to penicillin; Z90.5 Acquired absence of kidney
CPT/HCPCS: 99283; 10060; A6266; J3490

== ENCOUNTER 2018-06-06 08:21 | Emergency (ER) | payer SELFPAY ==
[2018-06-06] MEDS ORDERED: LIDOCAINE 1% INJ (10 MG/ML) 10 ML MDV INJ ONE (09:47)
--- NOTE | 2018-06-06 09:51 | ER Document Report ---
HPI - HPI Patient complains to provider of: cyst Time Seen by Provider: 06/06/18 09:46 Pain Level: 4 Context: Pleasant 57-year-old male presents with a cyst on the top of his right foot that is recurrent. He states he got it drained last in November 2017 here. Patient states that he is attempting to get seen by podiatry but is been unsuccessful thus far. Patient denies any fever, chills, nausea, vomiting. Patient has normal range of motion. Patient just has pain with ambulation but has not had an altered gait. Other complaints - CONSTITUTIONAL Constitutional: DENIES: Fever, Chills - EENT EENT: DENIES: Sore Throat, Ear Pain, Eye problems - NEURO Neurology: DENIES: Headache, Weakness, Vision blurred, Dizzinesss / Vertigo - CARDIOVASCULAR Cardiovascular: DENIES: Chest pain - RESPIRATORY Respiratory: DENIES: Trouble Breathing, Coughing - GASTROINTESTINAL Gastrointestinal: DENIES: Abdominal Pain, Black / Bloody Stools - URINARY Urinary: DENIES: Dysuria, Frequency - MUSCULOSKELETAL Musculoskeletal: REPORTS: Extremity pain - right foot Past Medical History - Social History Smoking Status: Current Every Day Smoker Chew tobacco use (# tins/day): No Frequency of alcohol use: Social Drug Abuse: Marijuana Family History: Reviewed & Not Pertinent Patient has suicidal ideation: No Patient has homicidal ideation: No - Past Medical History Cardiac Medical History: Reports: Hx Coronary Artery Disease, Hx Hypercholesterolemia, Hx Hypertension Denies: Hx Heart Attack Pulmonary Medical History: Denies: Hx Asthma, Hx Bronchitis, Hx COPD, Hx Pneumonia Neurological Medical History: Denies: Hx Cerebrovascular Accident, Hx Seizures Renal/ Medical History: Denies: Hx Peritoneal Dialysis Musculoskeletal Medical History: Reports Hx Arthritis Past Surgical History: Reports: Hx Abdominal Surgery - hernia repair, Hx Kidney (Renal Surgery) - Rt kidney removed. Denies: Hx Pacemaker - Immunizations Hx Diphtheria, Pertussis, Tetanus Vaccination: No Vertical Provider Document - CONSTITUTIONAL Notes: PHYSICAL EXAMINATION: Reviewed vital signs and charting by RN GENERAL: Alert, interacts well. No acute distress. HEAD: Normocephalic, atraumatic. EYES: Pupils equal, round. Extraocular movements intact. ENT: Oral mucosa moist, tongue midline. NECK: Full range of motion. Supple. Trachea midline. EXTREMITIES: Moves all 4 extremities spontaneously. No edema, No cyanosis. NEUROLOGICAL: Alert. Normal speech. PSYCH: Normal affect, normal mood. SKIN: Warm, dry, normal turgor. No rashes or lesions noted. - INFECTION CONTROL TRAVEL OUTSIDE OF THE [place] IN LAST 30 DAYS: No Course - Re-evaluation Re-evalutation: 06/06/18 09:51 Saw patient with [employer] student. Plan is for her to perform an incision and drainage. 06/06/18 10:22 [employer] SINGH student, performed incision and drainage. Moderate amount of serous fluid released, 3 cm linear incision, patient tolerated procedure well and reported great relief. No evidence of any cellulitis or infection so there is no need for antibiotics. Instructed patient to follow-up with podiatry. Patient is safe and stable for discharge home. - Vital Signs Vital signs: Temp Pulse Resp BP Pulse Ox 98.3 F 67 16 148/89 H 97 06/06/18 08:26 06/06/18 08:26 06/06/18 08:26 06/06/18 08:26 06/06/18 08:26 Procedures - Incision and Drainage Right Mid- Foot Type: Simple Anesthetic type: 1% Lidocaine Blade size: 11 I&D procedure: Shurclens applied Incision Method: Incision made by scalpel Discharge - Discharge Clinical Impression: Cyst Condition: Good Disposition: HOME, SELF-CARE Additional Instructions: You are seen in the emergency department this morning for a cyst on the top of your right foot. Since this is recurrent, it is important that you do follow-up with podiatry so they can do definitive treatment and remove it. Please look for any signs of infection like redness around the site which would indicate cellulitis, any red streaks running up your leg, fevers or chills, your foot b ecomes hot or you lose range of motion. Inability to bear weight on your foot. If you have any concerning symptoms like those please return to the emergency department. Once the bleeding subsides put antibiotic ointment on it 3 times a day and you can cover it with nonstick gauze. It should heal over the next 1-2 weeks. If you have any concerns all please return to the emergency department.
[2018-06-06 10:36] VITALS: BP 131/92
== END 2018-06-06 10:39 | disposition home or self-care (01) ==
LOC: ER 08:21
DX: L72.3 Sebaceous cyst (principal); F17.200 Nicotine dependence, unspecified, uncomplicated; I25.10 Atherosclerotic heart disease of native coronary artery without angina pectoris; I10 Essential (primary) hypertension
CPT/HCPCS: 99282

== ENCOUNTER → 2018-07-19 | Outpatient (CLI) | payer SELFPAY ==
--- NOTE | 2018-07-19 13:09 | RADIOLOGY REPORT (SQ) ---
EXAM DESCRIPTION: FOOT RIGHT 2 VIEWS COMPLETED DATE/TIME: 07/19/2018 12:55 pm REASON FOR STUDY: MASS DORSAL FOOT RT R22.41 LOCALIZED SWELLING, MASS AND LUMP, RIGHT LOWER LIMB COMPARISON: None. NUMBER OF VIEWS: One view. TECHNIQUE: Lateral right foot weight-bearing radiographic images acquired of the right foot. LIMITATIONS: None. FINDINGS: Patient has a palpable abnormality along the dorsum of the foot. There is bulky bony spur ring at the talonavicular joint, and bulky bony spurring along the dorsal aspect of the tarsometatars al joints. IMPRESSION: Palpable abnormality dorsum right foot correlates with bony spurring along the dorsal as pect of the talonavicular joint and tarsometatarsal joints. TECHNICAL DOCUMENTATION: JOB ID: [id number] [employer]- All Rights Reserved Reading location - IP/workstation name: [email or web address]
== END ==
LOC: OD 12:40
PROVIDERS: ATTEND Podiatrist Foot & Ankle Surgery
DX: M77.51 Other enthesopathy of right foot and ankle (principal); R22.41 Localized swelling, mass and lump, right lower limb

== ENCOUNTER 2018-09-18 06:31 | Emergency (ER) | payer OTHER ==
[2018-09-18] MEDS ORDERED: CLINDAMYCIN HCL 150 MG CAPSULE PO ONE (07:44)
[2018-09-18] MEDS ORDERED: OXYCODONE-ACETAMINOPHEN 5-325 MG TABLET PO ONE (07:44)
[2018-09-18] MEDS ORDERED: HYDROCODONE/ACETAMINOPHEN 5-325 MG (6 TAB/ER DISP) PO PRN (07:44)
[2018-09-18] MEDS ORDERED: ONDANSETRON ODT 4 MG TAB (6 TAB/ER DISP) PO PRN (07:45)
--- NOTE | 2018-09-18 07:50 | ER Document Report ---
HPI - HPI Time Seen by Provider: 09/18/18 07:37 Pain Level: 5 Context: Patient is a 57-year-old male that comes to the emergency department for chief complaint of dental pain. He states that for the past week or so he has had sharp pains in his right upper jaw area with slight swelling sensation of the face and shooting up towards the right ear. He has known poor dentition, he does have a follow-up with a dentist set up next week. He states he was told by the dental office to come in for antibiotics. He reports a history of hypertension and hyperlipidemia, medicated. Denies any other complaints including neck pain, fever, headache. Past Medical History - General Information source: Patient - Social History Smoking Status: Current Every Day Smoker Chew tobacco use (# tins/day): No Smoking Education Provided: Yes - <3 min Frequency of alcohol use: daily Drug Abuse: None Lives with: Family Family History: Reviewed & Not Pertinent Patient has suicidal ideation: No Patient has homicidal ideation: No - Past Medical History Cardiac Medical History: Reports: Hx Coronary Artery Disease, Hx Hypercholesterolemia, Hx Hypertension Denies: Hx Heart Attack Pulmonary Medical History: Denies: Hx Asthma, Hx Bronchitis, Hx COPD, Hx Pneumonia Neurological Medical History: Denies: Hx Cerebrovascular Accident, Hx Seizures Renal/ Medical History: Denies: Hx Peritoneal Dialysis Musculoskeletal Medical History: Reports Hx Arthritis Past Surgical History: Reports: Hx Abdominal Surgery - hernia repair, Hx Kidney (Renal Surgery) - Rt kidney removed. Denies: Hx Pacemaker - Immunizations Hx Diphtheria, Pertussis, Tetanus Vaccination: No Vertical Provider Document - CONSTITUTIONAL General Appearance: WD/WN, No Apparent Distress - INFECTION CONTROL TRAVEL OUTSIDE OF THE [place] IN LAST 30 DAYS: No - HEENT HEENT: Atraumatic, Normocephalic, PERRLA. negative: Conjuctival Injection, Pharyngeal Exudate, Pharyngeal Tenderness, Pharyngeal Erythema, Tympanic Membrane Red, Tympanic Membrane Bulging Mouth Diagram: 1 - Dental breakdown with surrounding erythema of the gumline but no noted fluctuance, induration, abscess. Widespread dental breakdown otherwise, dental partial noted (upper), otherwise unremarkable - NECK Neck: Normal Inspection. negative: Lymphadenopathy-Left, Lymphadenopathy-Right - RESPIRATORY Respiratory: Breath Sounds Normal, No Respiratory Distress - CARDIOVASCULAR Cardiovascular: Regular Rate, Regular Rhythm - GI/ABDOMEN Gastrointestinal: Abdomen Soft, Abdomen Non-Tender - BACK Back: Normal Inspection - MUSCULOSKELETAL/EXTREMETIES Musculoskeletal/Extremeties: MAEW, FROM, Non-Tender - NEURO Level of Consciousness: Awake, Alert, Appropriate Motor/Sensory: No Motor Deficit, No Sensory Deficit - DERM Integumentary: Warm, Dry, No Rash Course - Re-evaluation Re-evalutation: Patient with evidence of dental infection but no evidence of abscess. No concerning findings otherwise. Placed on clindamycin, referred to dentist, discussed follow-up and return precautions. Patient states understanding and agreement. - Vital Signs Vital signs: Temp Pulse Resp BP Pulse Ox 98.6 F 73 20 142/81 H 97 09/18/18 06:37 09/18/18 06:37 09/18/18 06:37 09/18/18 06:37 09/18/18 06:37 Discharge - Discharge Clinical Impression: Pain, dental Condition: Stable Disposition: HOME, SELF-CARE Additional Instructions: Your evaluation is consistent with a dental infection. I recommend that you take the antibiotics as prescribed to completion. I also recommend you take a p robiotic in addition to this. Take the pain medication as prescribed only if needed, especially to help you sleep. Take Tylenol otherwise. Follow-up with the dental referral listed below or this will continue to happen. Return if you worsen including increased swelling of the face. [facility] [address], [address] Prescriptions: Clindamycin HCl [Cleocin 150 mg Capsule] 150 mg PO Q6 #56 capsule Referrals: URSULA CHRISTOPHER DPM [Primary Care Provider] - Follow up as needed
[2018-09-18 08:05] VITALS: BP 139/82
== END 2018-09-18 08:05 | disposition home or self-care (01) ==
LOC: ER 06:31
DX: K08.9 Disorder of teeth and supporting structures, unspecified (principal); R68.84 Jaw pain; F17.200 Nicotine dependence, unspecified, uncomplicated; I25.10 Atherosclerotic heart disease of native coronary artery without angina pectoris; E78.00 Pure hypercholesterolemia, unspecified; I10 Essential (primary) hypertension
CPT/HCPCS: 99282

== ENCOUNTER → 2020-02-24 | Outpatient (CLI) | payer MEDICAID ==
--- NOTE | 2020-02-24 11:07 | RADIOLOGY REPORT (SQ) ---
EXAM DESCRIPTION: CT LUNG CANCER SCREENING IMAGES COMPLETED DATE/TIME: 02/24/2020 9:26 am FINDINGS: LUNGS AND PLEURA: There is a confluent lobulated masslike consolidation in the right upper lobe measuring 5 x 2.3 cm with multiple satellite nodules (image 105), with satellite nodules at the anterior margin measuring 1.1 cm and along the superior margin measuring 0.8 cm. There is a central solid round nodule measuring 1.4 cm also right upper lobe (image 110). Separate spiculated nodule m easuring 1.5 cm at the inferior aspect right upper lobe (image 134). Focal sub solid nodule measurin g 6 mm right upper lobe (image 87). Background mild pulmonary emphysema. No pleural effusions or calcifications. No pneumothorax. No scarring or interstitial changes. HILAR AND MEDIASTINAL STRUCTURES: Multiple enlarged right hilar and mediastinal lymph nodes, for exam ple a right hilar node measures 2.5 x 1.8 cm, a precarinal node measures 3.3 x 2.1 cm, and multiple e nlarged prevascular and aortic pulmonary window lymph nodes measures up to 1.7 x 1.3 cm. HEART AND VASCULAR STRUCTURES: No aortic aneurysm. No pericardial effusion. No cardiac devices. CORONARY ARTERY CALCIFICATIONS: No significant calcifications. UPPER ABDOMEN, THYROID, BONES, OTHER SOFT TISSUES: Partial visualization right nephrectomy. IMPRESSION: 1. Multilobulated mass in the right upper lobe with multiple satellite nodules, highly suspicious for malignancy. This may represent a primary lung lesion or possibly metastatic disease in the appropri ate clinical setting. 2. Enlarged mediastinal and right hilar lymph nodes suspicious for metastases. 3. Further evaluation with PET CT is recommended. Pulmonary mass may be amenable to percutaneous wilfrid pling. LUNGRADS: LUNGRADS: 4B SUSPICIOUS; FINDINGS FOR WHICH ADDITIONAL DIAGNOSTIC TESTING AND/OR TISSUE SA MPLING IS RECOMMENDED. MODIFIER: NONE. RECOMMENDATION: Chest CT with or without contrast, PET/CT, and/or tissue sampling depending on the p robability or malignancy and comorbidities. PET/CT may be used when there is a ? 8 mm solid componen t. COMMENT: CRITERIA: Solid nodule(s): ? 15 mm OR new or growing and ? 8 mm. Part solid nodule(s): A solid component ? 8 mm OR a new or growing ? 4 mm solid component. TECHNICAL DOCUMENTATION: JOB ID: [id number] Quality ID # [id number]: Final reports with documentation of one or more dose reduction techniques (e.g., Au tomated exposure control, adjustment of the mA and/or kV according to patient size, use of iterative reconstruction technique) 2010 [facility] REASON FOR STUDY: Z87.891 PERSONAL HISTORY OF NICOTINE DEPENDENCE Z87.891 PERSONAL HISTORY OF NICOT INE DEPENDENCE Has the patient had a Chest CT scan within the past year? N Was the patient offered tobacco cessation counseling? Y Was the patient engaged in shared decision making for this test? Y Does the patient have signs or symptoms of Lung Cancer? N Is the patient a smoker? Y How many pack years? 30 YEAR How many years since quitting smoking? 0 Patients age: 59 Z87.891 PERSONAL HISTORY OF NICOTINE DEPENDENCE Z87.891 PERSONAL HISTORY OF NICOTINE DEPENDENCE. Hi story of right nephrectomy for renal mass. COMPARISON: None. No previous CT chest. MRI lumbar spine 06/17/2017. CT abdomen and pelvis 09/28/2016 TECHNIQUE: Low Dose CT scan performed of the chest without intravenous contrast for purposes of scre ening for lung cancer. Images reviewed with lung, soft tissue and bone windows. Reconstructed coron al and sagittal MPR images reviewed. All images stored on PACS. All CT scanners at this facility use dose modulation, iterative reconstruction, and/or weight based d osing when appropriate to reduce radiation dose to as low as reasonably achievable (ALARA). [facility]: Dose Right [facility]: CareDose [facility]: Dose Right [facility]: Teradose 4D [facility]: [employer] RADIATION DOSE: CT Rad equipment meets quality standard of care and radiation dose reduction techniq ues were employed. CTDIvol: 2.1 mGy. DLP: 93 mGy-cm. mGy. . LIMITATIONS: No technical limitations. Reading location - IP/workstation name: [email or web address]
== END ==
LOC: RAD 09:55
PROVIDERS: ATTEND Registered Nurse
DX: Z12.2 Encounter for screening for malignant neoplasm of respiratory organs (principal); Z87.891 Personal history of nicotine dependence; R59.0 Localized enlarged lymph nodes; R91.8 Other nonspecific abnormal finding of lung field
CPT/HCPCS: G0297

== ENCOUNTER → 2020-04-07 | Outpatient (CLI) | payer MEDICAID | LOC: RAD 10:44 | PROVIDERS: ATTEND Internal Medicine Medical Oncology | DX: Z53.09 Procedure and treatment not carried out because of other contraindication (principal) | CPT/HCPCS: 82565 ==